=== PATIENT | male | born 1990 | race Caucasian/White ===

== ENCOUNTER 2019-10-10 08:18 | Emergency (ER) | payer SELFPAY ==
[2019-10-10 08:56] VITALS: BP 133/76; PULSE 93; RESP 22; TEMP 37.6; O2SAT 98
--- NOTE | 2019-10-10 09:00 | ED.URI ---
HPI - URI/Sore Throat General Chief Complaint: Upper Respiratory Infection Stated Complaint: cough/Body aches/headache Time Seen by Provider: 10/10/19 09:00 Source: patient and RN notes reviewed History of Present Illness HPI Narrative: Patient is a 29-year-old male that presents the urgent care with complaints of body aches, chest congestion, cough, headache, upper back pain. Patient states that it started last night while he was at work and he has not taken anything for his symptoms. Patient states he vomited one time and has been slightly nauseous with a sore throat. Denies any known exposure to strep or flu. No other acute complaints. Patient appears slightly fatigued but otherwise no acute distress noted. Patient read the plan of care. Related Data Allergies Allergy/AdvReac Type Severity Reaction Status Date / Time No Known Allergies Allergy Verified 10/10/19 09:15 Review of Systems Review of Systems: Narrative: CONSTITUTIONAL: Denies fever, chills, or sweats. EYES: Denies visual changes, redness, or discharge. ENT: Reports of sinus congestion, sore throat CARDIOVASCULAR: Denies chest pain, palpitations, or edema. RESPIRATORY: Reports of cough without dyspnea or wheezing GASTROINTESTINAL: Denies abdominal pain, nausea, vomiting, or diarrhea. GENITOURINARY: Denies dysuria or hematuria. SKIN: Denies rash or itching. MUSCULOSKELETAL: Denies back pain, joint pain; reports of body aches NEUROLOGIC: Reports of headache All other systems reviewed are negative, except as documented in HPI. PMFSH Comments At the time of my signature, I reviewed and agree with the nursing past medical, surgical, social, and family history. There is no relevant family history pertinent to the patient complaint. Exam Narrative: Exam Narrative: GENERAL: This is a well-nourished, well-developed patient, appears slightly fatigued HEAD: normocephalic, atraumatic. EYES: PERRL. Sclera clear/white. Vision is grossly intact. EARS: External ears normal, auditory canals clear and without drainage, TMs normal without perforation. Hearing grossly intact. NOSE: External nose normal with no obvious nasal discharge, bilateral erythemic nares with clear rhinorrhea. THROAT: Mucous membranes moist, moderate erythema noted posterior oropharynx with moderate postnasal drainage. NECK: Neck supple, non-tender without lymphadenopathy CARDIOVASCULAR: Regular rate and rhythm without murmurs, gallops, or rubs. RESPIRATORY: Clear to auscultation. Breath sounds equal bilaterally. No wheezes, rales, or rhonchi. SKIN: warm, intact with no suspicious lesions or rash, good texture and turgor. NEURO: awake, alert, and oriented to person, place and time. There were no obvious focal neurologic abnormalities. EXTREMITIES: No clubbing, cyanosis, or edema. Course Vital Signs Vital signs: Vital Signs Temperature 99.7 F H 10/10/19 08:56 Pulse Rate 93 10/10/19 08:56 Respiratory Rate 22 H 10/10/19 08:56 Blood Pressure 133/76 10/10/19 08:56 Pulse Oximetry 98 10/10/19 08:56 Temperature 99.7 F H 10/10/19 08:56 Pulse Rate 93 10/10/19 08:56 Respiratory Rate 22 H 10/10/19 08:56 Blood Pressure 133/76 10/10/19 08:56 Pulse Oximetry 98 10/10/19 08:56 Reviewed MDM - URI/Sore Throat MDM Narrative Medical decision making narrative: Reviewed lab results with the patient. Aware that flu swab was negative for influenza. Strep swab was positive. Advised the patient to complete antibiotic regimen as prescribed. Make sure to eat and drink with the medication. Increase fluids and rest. Use humidifier at night. Use Tylenol/ibuprofen as needed for fever and pain. Follow-up with PCP within 2 to 5 days or for worsening symptoms or failure to improve. Differential Diagnosis Differential diagnosis: Likely upper respiratory infection, otitis media, sinusitis, viral infection, bronchitis, influenza and pharyngitis Lab Data Attestation: I reviewed the patient's lab results
== END 2019-10-10 09:20 | disposition home or self-care (01) ==
PROVIDERS: Emergency Provider Nurse Practitioner Family
DX: J02.0 Streptococcal pharyngitis (principal)
CPT/HCPCS: 87804; 87880; 99213; G0463

== ENCOUNTER → 2020-05-09 09:29 | Emergency (ER) | payer OTHER, SELFPAY | END | disposition left against medical advice (07) | LOC: EXPBETH 09:45 | PROVIDERS: Emergency Provider Registered Nurse | DX: Z53.21 Procedure and treatment not carried out due to patient leaving prior to being seen by health care provider (principal) | CPT/HCPCS: 99199 ==

== ENCOUNTER 2020-09-20 16:45 | Emergency (ER) | payer OTHER, SELFPAY ==
--- NOTE | ~2020-09-20 | XR_ITS ---
XR hand RT min 3V 09/20/2020 17:12 INDICATION: Right hand pain after trauma. Unchanged injury. PROCEDURE: 3 views right hand COMPARISON: No prior studies for comparison. FINDINGS: Fracture, dislocation or subluxation is not identified. There is an old healed boxer's frac ture of the fifth metacarpal. The soft tissues appear within normal limits. No foreign bodies are id entified. IMPRESSION: 1: NO ACUTE BONE OR JOINT ABNORMALITY IDENTIFIED. Reviewed, dictated and finalized at location A. ODS TIME ANALYST
[2020-09-20 17:00] VITALS: BP 137/61; PULSE 66; RESP 18; TEMP 36.9; O2SAT 66
--- NOTE | 2020-09-20 17:03 | ED.UPPEXIN ---
HPI - Extremity Injury (Upper) General Chief Complaint: Extremity Injury, Upper Stated Complaint: Extremity Injury, Upper Time Seen by Provider: 09/20/20 17:03 Source: patient and RN notes reviewed History of Present Illness HPI narrative: Patient is a 30-year-old male who presents the urgent care with complaints of right hand pain. Patient states that this morning he punched a wooden door frame and yesterday he punched his phone. Patient states that the pain has been consistent since this morning he has not taken anything [id number] for the pain. Patient is right-hand dominant and states that he has fractured the right hand in the past. No other acute complaints. No acute distress noted. Patient aware of the plan of care. Some parts of this dictation were generated by voice recognition software and may contain typographical and/or grammatical inaccuracies. Related Data Home Medications Medication Instructions Recorded Confirmed No Home Medications 09/20/20 09/20/20 Allergies Allergy/AdvReac Type Severity Reaction Status Date / Time No Known Allergies Allergy Verified 09/20/20 16:55 Review of Systems Review of Systems: Narrative: CONSTITUTIONAL: Denies fever, chills, or sweats. EYES: Denies visual changes, redness, or discharge. ENT: Denies rhinorrhea, congestion, sore throat, or otalgia. CARDIOVASCULAR: Denies chest pain, palpitations, or edema. RESPIRATORY: Denies cough or dyspnea. GASTROINTESTINAL: Denies abdominal pain, nausea, vomiting, or diarrhea. GENITOURINARY: Denies dysuria or hematuria. SKIN: Denies rash or itching. MUSCULOSKELETAL: Reports of right hand pain NEUROLOGIC: Denies headache, numbness, or weakness. All other systems reviewed are negative, except as documented in HPI. PMFSH Comments At the time of my signature, I reviewed and agree with the nursing past medical, surgical, social, and family history. There is no relevant family history pertinent to the patient complaint. Exam Narrative: Exam Narrative: GENERAL: This is a well-nourished, well-developed patient, in no apparent distress. HEAD: normocephalic, atraumatic. EYES: PERRL. Sclera clear/white. Vision is grossly intact. EARS: External ears normal NOSE: External nose normal with no obvious nasal discharge, nares without redness, no rhinorrhea. THROAT: Mucous membranes moist NECK: Neck supple SKIN: warm, intact with no suspicious lesions or rash, good texture and turgor. NEURO: awake, alert, and oriented to person, place and time. There were no obvious focal neurologic abnormalities. EXTREMITIES: Mild ecchymosis and edema localized to the proximal aspect of the fifth metacarpal. Positive strong right radial pulse with capillary refill less than 2 seconds. No obvious deformity. Course Vital Signs Vital signs: Vital Signs Temperature 98.4 F 09/20/20 17:00 Pulse Rate 66 09/20/20 17:00 Respiratory Rate 18 09/20/20 17:00 Blood Pressure 137/61 09/20/20 17:00 Pulse Oximetry 66 L 09/20/20 17:00 Temperature 98.4 F 09/20/20 17:00 Pulse Rate 66 09/20/20 17:00 Respiratory Rate 18 09/20/20 17:00 Blood Pressure 137/61 09/20/20 17:00 Pulse Oximetry 66 L 09/20/20 17:00 Reviewed MDM - Extremity Injury (Upper) MDM Narrative Medical decision making narrative: Reviewed x-ray results with the patient. He is aware that x-ray was negative for fracture or deformity. Advised the patient to use ice/Tylenol/ibuprofen as needed for comfort and pain. Possibly avoid taking your anger out on punching the muñoz/your phone. Follow-up with your PCP within 2 to 5 days or for worsening symptoms or failure to improve. Differential Diagnosis Differential diagnosis: Likely sprain and strain of wrist, fracture of wrist, finger sprain, dislocation of finger, fracture of hand and dislocation of shoulder Imaging Data Radiologist's impression: [address] [address] XRay Rep
--- NOTE | 2020-09-20 17:18 | PC.NURSE ---
PT DECLINED ICE FOR COMFORT
== END 2020-09-20 17:25 | disposition home or self-care (01) ==
PROVIDERS: Emergency Provider Nurse Practitioner Family
DX: M79.641 Pain in right hand (principal)
CPT/HCPCS: 73130; 99213; G0463

== ENCOUNTER 2020-12-18 10:47 | Emergency (ER) | payer OTHER, SELFPAY ==
[2020-12-18 10:54] VITALS: BP 123/77; PULSE 61; RESP 20; TEMP 36.8; O2SAT 99
--- NOTE | 2020-12-18 11:32 | ED.NAVMDI ---
HPI - Nausea/Vomiting/Diarrhea General Chief complaint: Nausea/Vomiting/Diarrhea Stated complaint: diahrrea and nausea Time Seen by Provider: 12/18/20 11:32 Source: patient Mode of arrival: ambulatory Limitations: no limitations History of Present Illness HPI Narrative: PATIENT PRESENTS WITH NAUSEA AND DIARRHEA. NO ABDOMINAL PAIN NO FEVER. NORMAL APPETITE AND NORMAL ACTIVITY. WORK SENT HIM FOR COVID 19 TESTING. MD elicited complaint: nausea, vomiting and diarrhea Related Data Home Medications Medication Instructions Recorded Confirmed No Home Medications 09/20/20 09/20/20 Allergies Allergy/AdvReac Type Severity Reaction Status Date / Time No Known Allergies Allergy Verified 09/20/20 16:55 Review of Systems Review of Systems: Narrative: CONSTITUTIONAL: Denies fever, chills, or sweats. EYES: Denies visual changes, redness, or discharge. ENT: Denies rhinorrhea, congestion, sore throat, or otalgia. CARDIOVASCULAR: Denies chest pain, palpitations, or edema. RESPIRATORY: Denies cough or dyspnea. GASTROINTESTINAL: Denies abdominal pain, nausea, vomiting, or diarrhea. GENITOURINARY: Denies dysuria or hematuria. SKIN: Denies rash or itching. MUSCULOSKELETAL: Denies back pain, joint pain, or myalgia. NEUROLOGIC: Denies headache, numbness, or weakness. PSYCHIATRIC: Denies anxiety or depression. PMFSH Comments At time of signature, agree with nursing past medical, surgical, social and family history. There is no relevant family history pertinent to the presenting complaint Exam Narrative: Exam Narrative: GENERAL: Well-appearing, well-nourished, and in no acute distress. HEAD: Normocephalic, atraumatic. EYES: PERRLA and EOMI. ENT: Nares clear, no rhinorrhea or epistaxis. Mucous membranes moist. NECK: Supple. CHEST: Clear to auscultation. No respiratory distress. HEART: Regular rate and rhythm. No murmur heard. Normal peripheral pulses. ABDOMEN: Soft, nontender, nondistended, normal active bowel sounds. EXTREMITIES: Normal range of motion. No edema. SKIN: Warm, dry, no rash. NEURO: No focal deficits. Alert and oriented x3. [place] Coma Scale Eye Opening: Spontaneous 4 [place] Coma Scale Motor: Obeys Commands 6 [place] Coma Scale Verbal: Oriented 5 Vj Coma Scale Total 15 Course Vital Signs Vital signs: Vital Signs Temperature 36.8 C 12/18/20 10:54 Pulse Rate 61 12/18/20 10:54 Respiratory Rate 20 12/18/20 10:54 Blood Pressure 123/77 12/18/20 10:54 Pulse Oximetry 99 12/18/20 10:54 Temperature 36.8 C 12/18/20 10:54 Pulse Rate 61 12/18/20 10:54 Respiratory Rate 20 12/18/20 10:54 Blood Pressure 123/77 12/18/20 10:54 Pulse Oximetry 99 12/18/20 10:54 MDM - Nausea/Vomiting/Diarrhea Lab Data Attestation: I reviewed the patient's lab results. Labs: Lab Results 12/18/20 Range/Units 11:00 POC SARS CoV-2 Ag Negative (Negative) Discharge Plan Discharge Clinical Impression: Educated about 2019 novel coronavirus infection, Nausea & vomiting, Acute diarrhea Patient Disposition: Home, Self-Care Condition: Stable Instructions: Antibiotic Form, Acute Nausea and Vomiting (ED), Acute Diarrhea (ED), COVID-19 (Coronavirus Disease 2019) (ED) Additional Instructions: The following recommendations have been made by the CDC and local Health Departments, regarding COVID-19: ?Those individuals with mild cases of COVID-19 can generally be discontinued from isolation, 10 days AFTER the onset of symptoms AND the resolution of fever for 24hrs (without the use of fever-reducing medications) ?Those individuals who were asymptomatic, and tested positive, are discontinued from isolation 10 days AFTER their first positive COVID-19 test ?Those individuals with SEVERE to CRITICAL illness or immunocompromised diseases may require up to 20 days of home isolation or hospitalization ?Majority of mild to moderate cases can be treated at home, without hospitalization or presc
[2020-12-20 13:55] LABS: SARS-CoV-2 RNA PCR Negative
== END 2020-12-18 11:40 | disposition home or self-care (01) ==
PROVIDERS: Emergency Provider Nurse Practitioner Family
DX: R19.7 Diarrhea, unspecified (principal); R11.2 Nausea with vomiting, unspecified; Z20.822 Contact with and (suspected) exposure to COVID-19
CPT/HCPCS: 87426; 99213; C9803; G0463; U0003; U0005

== ENCOUNTER 2022-02-23 10:38 | Emergency (ER) | payer SELFPAY ==
--- NOTE | 2022-02-23 10:42 | ED.NAVMDI ---
HPI - Nausea/Vomiting/Diarrhea General Chief complaint: Nausea/Vomiting/Diarrhea Stated complaint: Vomiting/Chills/Nausea Time Seen by Provider: 02/23/22 10:42 Source: patient and RN notes reviewed History of Present Illness HPI Narrative: Patient is a 32-year-old male who presents the urgent care with complaints of chills, nausea and vomiting. Patient denies of any abdominal pain or diarrhea but states he has had an increase in stools. Patient states symptoms started Sunday after he ate a cheeseburger and fries at a local restaurant. States that he instantly vomited in the parking lot. Denies of taking anything [id number] for his symptoms. Patient states his main concern is needing a work note. No other acute complaints. No acute distress noted. Patient aware of the plan of care. Some parts of this dictation were generated by voice recognition software and may contain typographical and/or grammatical inaccuracies. Related Data Allergies Allergy/AdvReac Type Severity Reaction Status Date / Time No Known Allergies Allergy Verified 02/23/22 10:50 Review of Systems Review of Systems: CONSTITUTIONAL: Denies fever, chills, or sweats. EYES: Denies visual changes, redness, or discharge. ENT: Denies rhinorrhea, congestion, sore throat, or otalgia. CARDIOVASCULAR: Denies chest pain, palpitations, or edema. RESPIRATORY: Denies cough or dyspnea. GASTROINTESTINAL: Reports of nausea and vomiting without abdominal pain or diarrhea GENITOURINARY: Denies dysuria or hematuria. SKIN: Denies rash or itching. MUSCULOSKELETAL: Denies back pain, joint pain, or myalgia. NEUROLOGIC: Denies headache, numbness, or weakness. All other systems reviewed are negative, except as documented in HPI. PMFSH Comments At the time of my signature, I reviewed and agree with the nursing past medical, surgical, social, and family history. There is no relevant family history pertinent to the patient complaint. Exam Narrative: GENERAL: This is a well-nourished, well-developed patient, in no apparent distress. HEAD: normocephalic, atraumatic. EYES: PERRL. Sclera clear/white. Vision is grossly intact. EARS: External ears normal NOSE: External nose normal with no obvious nasal discharge, nares without redness, no rhinorrhea. THROAT: Mucous membranes moist NECK: Neck supple CARDIOVASCULAR: Regular rate and rhythm without murmurs, gallops, or rubs. RESPIRATORY: Clear to auscultation. Breath sounds equal bilaterally. No wheezes, rales, or rhonchi. GASTROINTESTINAL: Abdomen soft, non-tender, nondistended. Bowel sounds are hypoactive. No guarding. SKIN: warm, intact with no suspicious lesions or rash, good texture and turgor. NEURO: awake, alert, and oriented to person, place and time. There were no obvious focal neurologic abnormalities. EXTREMITIES: No clubbing, cyanosis, or edema. Course Course Level of Care: Express Care Visit Vital Signs Vital signs: Vital Signs Temperature 98.4 F 02/23/22 10:44 Pulse Rate 73 02/23/22 10:44 Respiratory Rate 16 02/23/22 10:44 Blood Pressure 117/77 02/23/22 10:44 Pulse Oximetry 97 02/23/22 10:44 Oxygen Delivery Room Air 02/23/22 10:44 Temperature 98.4 F 02/23/22 10:44 Pulse Rate 73 02/23/22 10:44 Respiratory Rate 16 02/23/22 10:44 Blood Pressure 117/77 02/23/22 10:44 Pulse Oximetry 97 02/23/22 10:44 Oxygen Delivery Room Air 02/23/22 10:44 Reviewed MDM - Nausea/Vomiting/Diarrhea MDM Narrative Medical decision making narrative: Advised the patient to use the Zofran as needed for nausea. Increase water intake and eat a bland diet for the next 24 to 48 hours. If you develop any increase in symptoms associated with severe abdominal pain, nausea, vomiting, fever?go to the emergency room. Follow-up with your PCP within 2 to 5 days or for worsening symptoms or failure to improve. Differential Diagnosis Differential diagnosis: Likely traveler's diarrhea, food poisoning, gastr
[2022-02-23 10:44] VITALS: BP 117/77; PULSE 73; RESP 16; TEMP 36.9; O2SAT 97
== END 2022-02-23 11:10 | disposition home or self-care (01) ==
PROVIDERS: Emergency Provider Nurse Practitioner Family
DX: R11.2 Nausea with vomiting, unspecified (principal)
CPT/HCPCS: 99213; G0463

== ENCOUNTER 2022-05-04 10:04 | Emergency (ER) | payer OTHER, SELFPAY ==
--- NOTE | 2022-05-04 10:07 | ED.DENTAL ---
HPI - Dental/Oral General Chief complaint: Dental/Oral Stated complaint: Toothache Time Seen by Provider: 05/04/22 10:07 Source: patient and RN notes reviewed History of Present Illness HPI Narrative: Patient is a 32-year-old male who presents the urgent care with complaints of right lower dental pain and swelling. Patient states that he saw the dental school last week and he does need to have the tooth removed but they were unable to get him in until June. Patient was placed on 800 mg ibuprofen which he has been taking for the pain. Patient states that the swelling and increased pain started approximately 3 days ago. Denies of any fever, nausea or vomiting. No other acute complaints. No acute distress noted. Patient aware of the plan of care. Some parts of this dictation were generated by voice recognition software and may contain typographical and/or grammatical inaccuracies. Related Data Home Medications Medication Instructions Recorded Confirmed paroxetine HCl 20 mg tablet (Paxil) 20 mg PO QAM 05/04/22 05/04/22 Allergies Allergy/AdvReac Type Severity Reaction Status Date / Time No Known Allergies Allergy Verified 05/04/22 10:18 Review of Systems Review of Systems: CONSTITUTIONAL: Denies fever, chills, or sweats. EYES: Denies visual changes, redness, or discharge. ENT: Denies rhinorrhea, congestion, sore throat, or otalgia. Reports of right lower dental pain and swelling CARDIOVASCULAR: Denies chest pain, palpitations, or edema. RESPIRATORY: Denies cough or dyspnea. GASTROINTESTINAL: Denies abdominal pain, nausea, vomiting, or diarrhea. GENITOURINARY: Denies dysuria or hematuria. SKIN: Denies rash or itching. MUSCULOSKELETAL: Denies back pain, joint pain, or myalgia. NEUROLOGIC: Denies headache, numbness, or weakness. All other systems reviewed are negative, except as documented in HPI. PMFSH Comments At the time of my signature, I reviewed and agree with the nursing past medical, surgical, social, and family history. There is no relevant family history pertinent to the patient complaint. Exam Narrative: GENERAL: This is a well-nourished, well-developed patient, in no apparent distress. HEAD: normocephalic, atraumatic. EYES: PERRL. Sclera clear/white. Vision is grossly intact. EARS: External ears normal NOSE: External nose normal with no obvious nasal discharge, nares without redness, no rhinorrhea. THROAT: Mucous membranes moist, posterior pharynx clear. DENTAL: Carious tooth #32 with inverted position and surrounding erythema and edema NECK: Neck supple, mild tender right submandibular lymphadenopathy SKIN: warm, intact with no suspicious lesions or rash, good texture and turgor. NEURO: awake, alert, and oriented to person, place and time. There were no obvious focal neurologic abnormalities. EXTREMITIES: No clubbing, cyanosis, or edema. Course Course Level of Care: Express Care Visit Vital Signs Vital signs: Vital Signs Temperature 98.0 F 05/04/22 10:12 Pulse Rate 68 05/04/22 10:12 Respiratory Rate 14 05/04/22 10:12 Blood Pressure 124/91 H 05/04/22 10:12 Pulse Oximetry 99 05/04/22 10:12 Oxygen Delivery Room Air 05/04/22 10:12 Temperature 98.0 F 05/04/22 10:19 Pulse Rate 68 05/04/22 10:19 Respiratory Rate 14 05/04/22 10:19 Blood Pressure 124/91 H 05/04/22 10:19 Pulse Oximetry 99 05/04/22 10:19 Oxygen Delivery Room Air 05/04/22 10:19 Reviewed-patient is informed that they may have pre-hypertension or hypertension based on a blood pressure reading in the department. I recommend the patient call the primary care provider listed on their discharge instructions or a physician of their choice this week to arrange follow-up for further evaluation of possible pre-hypertension or hypertension. MDM - Dental/Oral MDM Narrative Medical decision making narrative: Advised the patient to continue taking the ibuprofen as needed for pain. Use a warm compress to th
[2022-05-04 10:12] VITALS: BP 124/91; PULSE 68; RESP 14; TEMP 36.7; O2SAT 99
[2022-05-04 10:19] VITALS: BP 124/91; PULSE 68; RESP 14; TEMP 36.7; O2SAT 99
== END 2022-05-04 10:24 | disposition home or self-care (01) ==
PROVIDERS: Emergency Provider Nurse Practitioner Family
DX: K04.7 Periapical abscess without sinus (principal)
CPT/HCPCS: 99213; G0463

== ENCOUNTER 2023-08-20 09:55 | Emergency (ER) | payer OTHER, SELFPAY ==
[2023-08-20 10:04] VITALS: BP 127/93; PULSE 110; RESP 20; TEMP 38.4; O2SAT 97
--- NOTE | 2023-08-20 10:36 | ED.URI ---
HPI - URI/Sore Throat General Chief Complaint: Upper Respiratory Infection Stated Complaint: headache/coug/chills/aches Time Seen by Provider: 08/20/23 10:37 Source: patient, RN notes reviewed and old records reviewed Mode of arrival: ambulatory Limitations: no limitations History of Present Illness HPI Narrative: 33-year-old male accompanied by child presents to Express Care with complaints to 3 week duration of cough with body aches chills fever, sore throat and sinus congestion and drainage with headache since Sunday with today being day 4 of his symptoms. Patient has used Vicks vapor rub only for his symptoms states he ran out of Tylenol. Patient reports that he has had history of strep throat in past. MD elicited complaint: cough and other (headache) Pertinent past history: other (strep) Onset (ago): week(s) (3 weeks cough 4 days temperature headache ) Able to tolerate fluids by mouth: Yes Treatments prior to arrival: other (Vicks vapor rub) Related Data Allergies Allergy/AdvReac Type Severity Reaction Status Date / Time No Known Allergies Allergy Verified 08/20/23 10:34 Review of Systems Review of Systems: CONSTITUTIONAL: Reports malaise, chills, sweats, or fever. EYES: Denies visual changes, redness, or discharge. ENT: Reports rhinorrhea, congestion, sinus pain, no otalgia and positive sore throat. CARDIOVASCULAR: Denies chest pain, palpitations, or edema. RESPIRATORY: Reports cough.? Denies dyspnea. GASTROINTESTINAL: Denies abdominal pain, nausea, vomiting, diarrhea SKIN: Denies rash or itching. MUSCULOSKELETAL:Reports myalgia. NEUROLOGIC: Reports headache. All systems reviewed & are unremarkable except as noted in HPI and below PMFSH Past Medical History Medical History Strep throat Surgical History Surgical History History of placement of ear tubes as child Social History Social History Smoking status: Current every day smoker Tobacco type: e-cigarettes/vaping Gender identity (if verbalized by the patient): Male Comments At time of signature, agree with nursing past medical, surgical, social and family history. There is no relevant family history pertinent to the presenting complaint Exam Narrative: GENERAL: Well-appearing, well-nourished, and in no acute distress. HEAD: Normocephalic EYES: PERRLA, conjunctivae clear ENT: Nares clear, turbinates edematous and erythematous, clear to yellowish tinged discharge. Mucous membranes moist. TM pearly cifuentes with dull light reflex bilaterally; no tragal tenderness. Oropharynx erythematous without lesions. Tonsils red enlarged and without exudate, no drooling, no hoarseness, no trismus, uvula midline.post nasal discharge noted NECK: Supple. lymphadenopathy CHEST: Clear to auscultation, breath sounds equal. No wheezing, rhonchi, rales, or stridor. No respiratory distress, speaks in full sentences.cough noted,SAO2 97% on room air HEART: Regular rate and rhythm. No murmur heard. SKIN: Warm, dry, no rash. NEURO: Alert and oriented x3. PSYCH: Normal mood and affect Course Course Emergency Course: Patient is aware of diagnosis, understands and agrees to treatment plan.? Anticipatory guidance given.? Patient agrees to follow-up as directed and is aware of reasons to seek care at the emergency department. Portions of this record may have been created with voice recognition software Level of Care: Express Care Visit Vital Signs Vital signs: Vital Signs Temperature 38.4 C H 08/20/23 10:04 Pulse Rate 110 H 08/20/23 10:04 Respiratory Rate 20 08/20/23 10:04 Blood Pressure 127/93 H 08/20/23 10:04 Pulse Oximetry 97 08/20/23 10:04 Oxygen Delivery Room Air 08/20/23 10:04 Temperature 38.4 C H 08/20/23 10:04 Pulse Rate 110 H 08/20/23 10
== END 2023-08-20 11:00 | disposition home or self-care (01) ==
PROVIDERS: Emergency Provider Registered Nurse; PCP Family Medicine
DX: J06.9 Acute upper respiratory infection, unspecified (principal); F17.290 Nicotine dependence, other tobacco product, uncomplicated; Z20.822 Contact with and (suspected) exposure to COVID-19
CPT/HCPCS: 87081; 87426; 87804; 87880; 99213; C9803; G0463

== ENCOUNTER 2023-10-23 08:55 | Emergency (ER) | payer OTHER, SELFPAY ==
[2023-10-23 09:00] VITALS: BP 111/75; PULSE 92; RESP 20; TEMP 37.6; O2SAT 98
--- NOTE | 2023-10-23 09:17 | ED.URI ---
HPI - URI/Sore Throat General Stated Complaint: Cough/Chest Congestion/Sore Throat/Fever History of Present Illness HPI Narrative: 33 y/o male presented for c/o Not feeling well. He endorses mild cough productive of green sputum, mild nasal congestion, sore throat, and generalized malaise. Not taking anything for symptoms. He endorses his mother is in the ICU with influenza pneumonia. Related Data Home Medications Medication Instructions Recorded Confirmed No Home Medications 10/23/23 10/23/23 Allergies Allergy/AdvReac Type Severity Reaction Status Date / Time No Known Allergies Allergy Verified 10/23/23 09:26 Review of Systems Review of Systems: CONSTITUTIONAL: reports body aches, fever, chills, sweats. EYES: Denies visual changes, redness, or discharge. ENT: reports sore throat Denies rhinorrhea, congestion, or otalgia. CARDIOVASCULAR: Denies chest pain, palpitations, or edema. RESPIRATORY: reports cough Denies dyspnea. GASTROINTESTINAL: Denies abdominal pain, nausea, vomiting, or diarrhea. SKIN: Denies rash, itching, or wounds. MUSCULOSKELETAL: Denies back pain, joint pain NEUROLOGIC: Denies headache PMFSH Past Medical History Medical History Strep throat Surgical History Surgical History History of placement of ear tubes as child Social History Social History Smoking status: Current every day smoker Tobacco type: e-cigarettes/vaping Gender identity (if verbalized by the patient): Male Exam Narrative: GENERAL: Ill-appearing, nontoxic no acute distress. EYES: conjunctivae clear ENT: Mucous membranes moist. TMs pearly cifuentes with normal light reflex bilaterally; no tragal tenderness. Oropharynx mildly erythematous without lesions. No drooling, no hoarseness, no trismus, uvula midline. No tripod positioning, hot potato voice, or soft palate swelling. NECK: Supple. No lymphadenopathy CHEST: Clear to auscultation, breath sounds equal. No respiratory distress, speaks in full sentences. HEART: Regular rate and rhythm. No murmur heard. SKIN: Warm, dry, no rash. NEURO: Alert and oriented x3. Course Course Emergency Course: Patient is aware of diagnosis, understands and agrees to treatment plan. Anticipatory guidance given. Patient agrees to follow-up as directed and is aware of reasons to seek care at the emergency department. Portions of this record may have been created with voice recognition software Level of Care: Express Care Visit Vital Signs Vital signs: Vital Signs Temperature 99.6 F 10/23/23 09:00 Pulse Rate 92 10/23/23 09:00 Respiratory Rate 20 10/23/23 09:00 Blood Pressure 111/75 10/23/23 09:00 Pulse Oximetry 98 10/23/23 09:00 Oxygen Delivery Room Air 10/23/23 09:00 Temperature 99.6 F 10/23/23 09:00 Pulse Rate 92 10/23/23 09:00 Respiratory Rate 20 10/23/23 09:00 Blood Pressure 111/75 10/23/23 09:00 Pulse Oximetry 98 10/23/23 09:00 Oxygen Delivery Room Air 10/23/23 09:00 MDM - URI/Sore Throat MDM Narrative Medical decision making narrative: Negative flu, COVID, strep results reviewed with patient. Discussed physical exam findings. Advised supportive measures and signs/symptoms to go to the ER. Pt is appropriate for outpt treatment and f/u. Differential Diagnosis Differential diagnosis: Likely upper respiratory infection, sinusitis, viral infection, bronchitis, influenza and pharyngitis Discharge Plan Discharge Clinical Impression: Viral infection Patient Disposition: Home, Self-Care Condition: Stable Instructions: Antibiotic Form, Viral Syndrome (ED) Additional Instructions: flu and COVID negative. Rapid strep swab was negative today You will be notified in a few days if the culture comes back positive for strep, and appr
== END 2023-10-23 09:30 | disposition home or self-care (01) ==
PROVIDERS: Emergency Provider Nurse Practitioner Family
DX: B34.9 Viral infection, unspecified (principal); Z20.822 Contact with and (suspected) exposure to COVID-19; F17.290 Nicotine dependence, other tobacco product, uncomplicated
CPT/HCPCS: 87081; 87426; 87804; 87880; 99213; G0463

== ENCOUNTER 2024-01-29 08:25 | Emergency (ER) | payer OTHER, SELFPAY ==
[2024-01-29 08:30] VITALS: BP 108/67; PULSE 90; RESP 20; TEMP 37.3; O2SAT 99
--- NOTE | 2024-01-29 08:39 | ED.URI ---
HPI - URI/Sore Throat General Chief Complaint: Upper Respiratory Infection Stated Complaint: throat/headache/fever Time Seen by Provider: 01/29/24 08:39 Source: patient, RN notes reviewed and old records reviewed Mode of arrival: ambulatory Limitations: no limitations History of Present Illness HPI Narrative: 34-year-old male to Express Care for complaint of sore throat and temp 103? starting approximately 12 hours prior to arrival. Patient states that he has not attempted to treat symptoms at home with any [id number] medication. Patient denies ear pain, cough, headache, GI complaints, allergies, headache. Respirations even and nonlabored. Patient speaking in full sentences without difficulty. Patient able to tolerate fluids by mouth. Patient in no acute distress. Related Data Allergies Allergy/AdvReac Type Severity Reaction Status Date / Time No Known Allergies Allergy Verified 10/23/23 09:26 Review of Systems Review of Systems: All systems reviewed & are unremarkable except as noted in HPI and below Constitutional: Constitutional: Reports as per HPI and Reports fever(s) Eyes: Eyes: Reports no additional eye complaints ENT: Reports as per HPI and Reports sore throat Cardiovascular: Cardiovascular: Reports no additional cardiovascular complaints, Denies chest pain and Denies dyspnea Respiratory: Respiratory: Reports no additional respiratory complaints, Denies cough and Denies dyspnea Musculoskeletal: Musculoskeletal: Reports no additional musculoskeletal complaints Neurologic: Reports system reviewed and no additional complaints, except as documented Psychiatric: Psychiatric: Reports no additional psychiatric complaints PMFSH Past Medical History Medical History Strep throat Surgical History Surgical History History of placement of ear tubes as child Social History Social History Smoking status: Current every day smoker Tobacco type: e-cigarettes/vaping Gender identity (if verbalized by the patient): Male Comments At the time of my signature, I reviewed and agree with the nursing past medical, surgical, social, and family history. There is no relevant family history pertinent to the patient complaint. Exam Const: General: cooperative, no acute distress, alert, tired appearing, uncomfortable and well nourished Nutritional Appearance: well nourished Orientation/consciousness: patient oriented x3 Limitations: no limitations HENMT: Head: normal to inspection Ears: external ears normal Face/Nose/Sinus: Normal external nose present, Normal nares present, normal facial exam, No erythema and No edema Face and sinus: normal facial exam, no erythema and no edema Mouth: Yes Normal oral and palatal mucosa present Throat: posterior oropharynx abnormal erythema and exudates and postnasal drainage Eyes: General: appearance normal, both eyes and all related structures Neck: Neck: normal visual inspection, full ROM and no meningeal signs Lymphatic: no lymphadenopathy noted and no lymphedema noted Chest: Chest palpation & inspection: normal inspection of the chest Resp: Effort & Inspection: normal respiratory effort and able to speak in complete sentences Auscultation: clear to auscultation bilaterally Cardio: Jugular venous distension: no JVD Rate: regular rate Rhythm: regular rhythm Back/Spine/Pelvis: Cervical Spine: cervical ROM normal Skin: General skin exam: normal color, no rashes or lesions noted and turgor normal Neuro: General: patient oriented x3, gait normal, moves all extremities and no meningeal signs Speech: normal speech Gait exam (Neuro): Normal gait present Extrem: General: normal to inspection, full ROM and capillary refill normal Psych: Appearance: grossly normal and well kempt Course C
== END 2024-01-29 09:18 | disposition home or self-care (01) ==
PROVIDERS: Emergency Provider Nurse Practitioner Family
DX: J02.0 Streptococcal pharyngitis (principal); F17.290 Nicotine dependence, other tobacco product, uncomplicated
CPT/HCPCS: 87880; 99213; G0463

== ENCOUNTER 2024-04-18 18:15 | Emergency (ER) | payer OTHER, SELFPAY ==
[2024-04-18 18:34] VITALS: BP 122/72; PULSE 74; RESP 18; TEMP 37; O2SAT 99
--- NOTE | 2024-04-18 19:03 | ED.URI ---
HPI - URI/Sore Throat General Chief Complaint: Upper Respiratory Infection Stated Complaint: Positive covid/worsening Time Seen by Provider: 04/18/24 18:50 Source: patient, family, RN notes reviewed and old records reviewed Mode of arrival: ambulatory Limitations: no limitations History of Present Illness HPI Narrative: 34 year old male who presents to [facility] care with complaints of testing positive for COVID on Monday 04/16 with symptoms worsening. Patient reports that he has headache with nasal congestion, diarrhea and body aches and dizziness. Patient reports that he has not had a headache today. Patient has not taken any OTC medications for his symptoms since this morning. Patient reports that he has not worked since Sunday due to illness. MD elicited complaint: nasal congestion and other (diarrhea, headache) Onset (ago): day(s) (day 3 of symptoms) Consistency: constant Able to tolerate fluids by mouth: Yes Related Data Home Medications Medication Instructions Recorded Confirmed No Home Medications 04/18/24 04/18/24 Allergies Allergy/AdvReac Type Severity Reaction Status Date / Time No Known Allergies Allergy Verified 04/18/24 19:00 Review of Systems Review of Systems: CONSTITUTIONAL: Reports malaise, chills, sweats, or fever. EYES: Denies visual changes, redness, or discharge. ENT: Reports rhinorrhea, congestion, sinus pain, no otalgia and no sore throat. CARDIOVASCULAR: Denies chest pain, palpitations, or edema. RESPIRATORY: Reports no cough.? Denies dyspnea. GASTROINTESTINAL: Denies abdominal pain, nausea, vomiting,reports some diarrhea SKIN: Denies rash or itching. MUSCULOSKELETAL: Reports myalgia. NEUROLOGIC: Reports headache. All systems reviewed & are unremarkable except as noted in HPI and below PMFSH Past Medical History Medical History Strep throat Surgical History Surgical History History of placement of ear tubes as child Social History Social History Smoking status: Current every day smoker Tobacco type: e-cigarettes/vaping Gender identity (if verbalized by the patient): Male Comments At time of signature, agree with nursing past medical, surgical, social and family history. There is no relevant family history pertinent to the presenting complaint Exam Narrative: GENERAL: Well-appearing, well-nourished, and in no acute distress. HEAD: Normocephalic EYES: PERRLA, conjunctivae clear ENT: Nares clear, turbinates edematous and erythematous, clear discharge. Mucous membranes moist. TM pearly cifuentes with dull light reflex bilaterally; no tragal tenderness. Oropharynx erythematous without lesions. Tonsils not enlarged and without exudate, no drooling, no hoarseness, no trismus, uvula midline. NECK: Supple. No lymphadenopathy CHEST: Clear to auscultation, breath sounds equal. No wheezing, rhonchi, rales, or stridor. No respiratory distress, speaks in full sentences. HEART: Regular rate and rhythm. No murmur heard. SKIN: Warm, dry, no rash. NEURO: Alert and oriented x3. PSYCH: Normal mood and affect Course Course Emergency Course: Patient is aware of diagnosis, understands and agrees to treatment plan.? Anticipatory guidance given.? Patient agrees to follow-up as directed and is aware of reasons to seek care at the emergency department. Portions of this record may have been created with voice recognition software Level of Care: Express Care Visit Vital Signs Vital signs: Vital Signs Temperature 37.0 C 04/18/24 18:34 Pulse Rate 74 04/18/24 18:34 Respiratory Rate 18 04/18/24 18:34 Blood Pressure 122/72 04/18/24 18:34 Pulse Oximetry 99 04/18/24 18:34 Oxygen Delivery Room Air 04/18/24 18:34 Temperature 37.0 C 04/18/24 18:34 Pulse
== END 2024-04-18 19:15 | disposition home or self-care (01) ==
PROVIDERS: Emergency Provider Registered Nurse
DX: U07.1 COVID-19 (principal); F17.290 Nicotine dependence, other tobacco product, uncomplicated
CPT/HCPCS: 99211; G0463

== ENCOUNTER 2024-07-21 08:29 | Emergency (ER) | payer OTHER, SELFPAY ==
--- NOTE | 2024-07-21 09:16 | ED_ITS ---
HPI - URI/Sore Throat General Chief Complaint: Upper Respiratory Infection Stated Complaint: Headache/Cough/Chest Congestioin/Fever Source: patient Mode of arrival: ambulatory Limitations: no limitations History of Present Illness HPI Narrative: 34 y/o male presented for c/o painful cough, onset yesterday. Endorses headache, fatigue, fever of 102.6 yesterday with chills. States he hears crackling at the end of breaths. Related Data Allergies Allergy/AdvReac Type Severity Reaction Status Date / Time No Known Allergies Allergy Verified 04/18/24 19:00 Review of Systems Review of Systems: CONSTITUTIONAL:reports body aches, fever, chills, sweats. EYES: Denies visual changes, redness, or discharge. ENT: Denies rhinorrhea, congestion, or otalgia. reports sore throat CARDIOVASCULAR: Denies chest pain, palpitations, or edema. RESPIRATORY: Reports cough, sob, denies wheezing. GASTROINTESTINAL: Denies abdominal pain, nausea, vomiting, or diarrhea. MUSCULOSKELETAL: Denies back pain, joint pain NEUROLOGIC: Denies headache, numbness, tingling, or weakness. All systems reviewed & are unremarkable except as noted in HPI and below PMFSH Past Medical History Medical History Strep throat Surgical History Surgical History History of placement of ear tubes as child Social History Social History Smoking status: Current every day smoker Tobacco type: e-cigarettes/vaping Gender identity (if verbalized by the patient): Male Comments At time of signature, I have reviewed and agree with nursing past medical, surg ical, social and family history unless otherwise noted. Please see nursing chart for further information. There is no relevant family history pertinent to the presenting complaint Exam Narrative: GENERAL: mildly ill-appearing, in no acute distress. EYES: EOMI. No redness or drainage. Conjunctivae normal. ENT: Mucous membranes pink and moist. No rhinorrhea. TMs normal bilaterally. Throat normal. Uvula midline. NECK: Normal AROM. Supple. CHEST: No respiratory distress. Lungs diminished to bases HEART: Regular rate and rhythm. No murmur appreciated. SKIN: Warm, dry, no rash. Capillary refill normal. Normal skin turgor. NEURO: Alert and oriented x3. Gait steady. PSYCH: Normal affect. Course Course Emergency Course: Patient is aware of diagnosis, understands and agrees to treatment plan. Anticipatory guidance given. Patient agrees to follow-up as directed and is aware of reasons to seek care at the emergency department. Portions of this record may have been created with voice recognition software Level of Care: Express Care Visit Vital Signs Vital signs: Vital Signs Temperature 98.9 F 07/21/24 09:26 Pulse Rate 89 07/21/24 09:26 Respiratory Rate 18 07/21/24 09:26 Blood Pressure 114/74 07/21/24 09:26 Pulse Oximetry 94 07/21/24 09:26 Oxygen Delivery Room Air 07/21/24 09:26 Temperature 98.9 F 07/21/24 09:26 Pulse Rate 89 07/21/24 09:26 Respiratory Rate 18 07/21/24 09:26 Blood Pressure 114/74 07/21/24 09:26 Pulse Oximetry 94 07/21/24 09:26 Oxygen Delivery Room Air 07/21/24 09:26 MDM - URI/Sore Throat MDM Narrative Medical decision making narrative: Declined duoneb. Imaging unavailable at this facility at this time. Discussed physical exam findings, negative flu and COVID. Agree to treat for pna at this time. Advised supportive measures and signs/symptoms to go to the ER. Pt is appropriate for outpt treatment and f/u. Differential Diagnosis Differential diagnosis: Likely upper respiratory infection, sinusitis, viral infection, bronchitis, influenza, pharyngitis and other (pneumonia) Discharge Plan Discharge Clinical Impression: Acute lower respiratory infection Patient Disposition: Home, Self-Care Condition: Stable Instructions: Antibiotic Form, Pneumonia (ED) Additional Instructions: Flu negative. Your rapid covid test was negative today. It may be too early to detect the virus, therefore we recommend retesting at home in 1-2 days Continue to follow general precautions: frequent handwashing, wear a mask, isolate/social distance, and avoid crowds if you have a fever. You must be fever free for 24 hours without the use of fever reducing medication (Tylenol/ibuprofen) before returning to work/school/crowds. Pneumonia is a lung infection that can cause a fever, cough, and trouble breathing. How it spreads: When someone with bacterial pneumonia coughs, sneezes, or talks, they release respiratory droplets into the air that can be inhaled by others.?You can also get pneumonia by touching a contaminated surface or object and then touching your mouth or nose. You're generally contagious for around 48 hours after starting antibiotics and your fever goes away.? To prevent the spread of pneumonia, you can:? ? Get vaccinated? ? Wash your hands often with soap and water for 20 seconds? ? Cover your mouth with a tissue when you cough or sneeze? ? Avoid people who are already sick with pneumonia? ? Stay home when you have pneumonia Take antibiotics as directed until complete. use albuterol inhaler every 4-6 hours for the next 2 days, then as needed for shortness of breath/wheezing eat small frequent meals. Get lots of rest and drink fluids. Alternate Tylenol and ibuprofen for pain/fever [id number] cough medication can cause drowsiness, take according to package directions If you have nasal congestion, you can take Zyrtec, Claritin along with Flonase spray Avoid smoking/vaping Call your Primary Care Doctor and make a follow-up appointment in 3 days. Go to the ER for worsening symptoms or concerns Prescriptions: New azithromycin [Zithromax Z-Fernando] 250 mg tablet See Rx Instructions .ROUTE .COMPLEX Qty: 6 0RF Rx Instructions: For 250 mg dose pack: take 500 mg today (day 1), then 250 mg for 4 days (days 2-5) methylprednisolone [Medrol (Fernando)] 4 mg tablets,dose pack See Rx Instructions .ROUTE .COMPLEX Qty: 21 0RF Rx Instructions: orally per package directions albuterol sulfate 90 mcg/actuation HFA aerosol inhaler 2 inh inhalation QID PRN (Reason: shortness of breath or wheezing) Qty: 8.5 0RF Follow-up/Referrals: PHYSICIAN NOT ON STAFF,NONSTAFF [Primary Care Provider] - Stand Alone Forms: Work/School Release IP Time of Disposition: 09:50
[2024-07-21 09:26] VITALS: BP 114/74; PULSE 89; RESP 18; TEMP 37.2; O2SAT 94
[2024-07-21 17:03] LABS: EDCOVIDSCREEN Negative (Negative)
[2024-07-21 17:03] LABS: EDINFLUASCREEN Negative (Negative); EDINFLUBSCREEN Negative (Negative)
== END 2024-07-21 09:54 | disposition home or self-care (01) ==
PROVIDERS: Emergency Provider Nurse Practitioner Family
DX: J22 Unspecified acute lower respiratory infection (principal); Z20.822 Contact with and (suspected) exposure to COVID-19
CPT/HCPCS: 87426; 87804; 99213; G0463

== ENCOUNTER 2024-09-30 08:25 | Emergency (ER) | payer OTHER, SELFPAY ==
[2024-09-30 08:29] VITALS: BP 124/70; PULSE 69; RESP 16; TEMP 36.6; O2SAT 98
--- NOTE | 2024-09-30 08:33 | ED.URI ---
HPI - URI/Sore Throat General Chief Complaint: Upper Respiratory Infection Stated Complaint: Cough/Fatigue Time Seen by Provider: 09/30/24 08:51 Source: patient and RN notes reviewed Mode of arrival: ambulatory Limitations: no limitations History of Present Illness HPI Narrative: 34-year-old male presents with concern for cough for 2 days. Reports body aches and feeling feverish. He reports cough is productive. Reports exposure to influenza a MD elicited complaint: cough Related Data Allergies Allergy/AdvReac Type Severity Reaction Status Date / Time No Known Allergies Allergy Verified 04/18/24 19:00 Review of Systems Review of Systems: CONSTITUTIONAL: Denies malaise, chills, sweats. Reports tactile fever. EYES: Denies visual changes, redness, or discharge. ENT: Denies rhinorrhea, congestion, sinus pain, otalgia and sore throat. CARDIOVASCULAR: Denies chest pain, palpitations, or edema. RESPIRATORY: Reports productive cough. Denies dyspnea. GASTROINTESTINAL: Denies abdominal pain, nausea, vomiting, diarrhea SKIN: Denies rash or itching. MUSCULOSKELETAL: Reports myalgia. NEUROLOGIC: Denies headache. All systems reviewed & are unremarkable except as noted in HPI and below PMFSH Past Medical History Medical History Strep throat Surgical History Surgical History History of placement of ear tubes as child Social History Social History Smoking status: Current every day smoker Tobacco type: e-cigarettes/vaping Gender identity (if verbalized by the patient): Male Comments At time of signature, agree with nursing past medical, surgical, social and family history. There is no relevant family history pertinent to the presenting complaint Exam Narrative: GENERAL: Well-appearing, well-nourished, and in no acute distress. HEAD: Normocephalic EYES: PERRLA, conjunctivae clear ENT: Nares clear. Mucous membranes moist. TM pearly cifuentes with dull light reflex bilaterally; no tragal tenderness. Oropharynx not erythematous without lesions. Tonsils not enlarged and without exudate, no drooling, no hoarseness, no trismus, uvula midline. NECK: Supple. No lymphadenopathy CHEST: Clear to auscultation, breath sounds equal. No wheezing, rhonchi, rales, or stridor. No respiratory distress, speaks in full sentences. HEART: Regular rate and rhythm. No murmur heard. SKIN: Warm, dry, no rash. NEURO: Alert and oriented x3. PSYCH: Normal mood and affect Course Course Emergency Course: Patient is aware of diagnosis, understands and agrees to treatment plan. Anticipatory guidance given. Patient agrees to follow-up as directed and is aware of reasons to seek care at the emergency department. Portions of this record may have been created with voice recognition software Level of Care: Express Care Visit Vital Signs Vital signs: Reviewed. MDM - URI/Sore Throat MDM Narrative Medical decision making narrative: Differential diagnosis considered: Adame virus, strep pharyngitis, allergic rhinitis, upper respiratory tract infection, sinusitis, rhinosinusitis, nasopharyngitis. viral pharyngitis, otitis media, otitis externa, pneumonia, bronchitis, viral cough syndrome, viral syndrome, and influenza. Exam findings show no acute concerns or changes; patient is non-toxic appearing and is in no distress. Patient is appropriate for outpatient treatment and follow-up. Lab Data Attestation: I reviewed the patient's lab results. Critical Care Time Critical Care Time Critical Care Time: No Discharge Plan Discharge Clinical Impression: Upper respiratory infection Patient Disposition: Home, Self-Care Condition: Stable Instructions: Upper Respiratory Infection (ED) Additional Instructions: Your rapid COVID and flu tests are negative -Take strict precautions to prevent the spread of your virus. Be diligent about covering your cough (even when you are alone) and washing your hands frequently. -You may contagious until you have been symptom and/or fever free for 24 hours without fever reducing medicine -Alternate Ibuprofen and Tylenol for pain and fever relief (per package directions) -Drink plenty of fluid - drink fluid with electrolytes such as Gatorade or other oral re-hydration solution. Avoid caffeine, which can make dehydration worse. -Get plenty of rest to help your body heal. -Use a cool mist humidifier for chest and nasal congestion. -Eat RAW honey or use cough drops to ease throat discomfort -Do not smoke or expose children to secondhand smoke -Wash your hands frequently. -Please follow-up with your primary care doctor in the next 1-2 days if your symptoms do not improve. -If you have any worsening of symptoms or any other concerns please go to the ED immediately. -Please take medications as prescribed and continue taking your home medications as usual. Patient Language: Hungarian Prescriptions: New dextromethorphan-guaifenesin [Mucinex DM] 60-1,200 mg tablet extended release 12 hr 1 tablet PO Q12H Qty: 12 0RF No Action azithromycin [Zithromax Z-Fernando] 250 mg tablet See Rx Instructions .ROUTE .COMPLEX Qty: 6 0RF Rx Instructions: For 250 mg dose pack: take 500 mg today (day 1), then 250 mg for 4 days (days 2-5) methylprednisolone [Medrol (Fernando)] 4 mg tablets,dose pack See Rx Instructions .ROUTE .COMPLEX Qty: 21 0RF Rx Instructions: orally per package directions albuterol sulfate 90 mcg/actuation HFA aerosol inhaler 2 inh inhalation QID PRN (Reason: shortness of breath or wheezing) Qty: 8.5 0RF Follow-up/Referrals: PHYSICIAN NOT ON STAFF,NONSTAFF [Primary Care Provider] - Time of Disposition: 08:57
--- OUTSIDE RECORDS SUMMARY | 2024-09-30 09:00 | XMS_ITS | Encounter Summary ---
Author Organization [facility] Address [address] [place] [address] Phone Care Team Providers Care Drilling Assistant Name Role Phone London Vega APRN, CNP Primary Care Pr ovider Reason for Visit * Reason Comments Medication Refill Encounter Details Date Type Department Care Team (Late st Contact Info) Description 09/09/2021 Refill [facility] - Family Medicine - [place] [address] [place] [phone] London Vega APRN, MASTER OF CEREMONIES [address] [address] Medication Refill Social History Tobacco Use Types Packs/Day Years Used Date Smoking Tobacco: Former Cigarettes 1.3 10 0 05/03/2002 - 01/10/2012 Smokeless Tobacco: Never Alcohol Use Standard Drinks/Week Comments No 0 (1 standard drink = 0.6 oz pur e alcohol) PHQ-2 Answer Date Recorded Total Score - Questions 1-9 0 04/20 Sex and Gender Information Value Date Recorded Sex Assigned at Not on file Legal Sex Male 8:50 PM CDT Gender Identity Not on file Sexual Orientation Not on file documented as of this encounter Miscellaneous Notes * Telephone Encounter - Zulemia Terry RN - 09/09/2021 9:13 AM CST Medication failed the protocol, provider to review and approve the medication order if appropriate. Requested Prescriptions Pending Prescriptions Disp Refills PARoxetine (PAXIL) 20 MG Tablet [Pharmacy Med Name: PAROXETINE HCL 20 MG TABLET] 30 Tablet 2 Sig: TAKE 1 TABLET BY MOUTH EVERY DAY SSRI (6 Month Refill Only) Protocol Failed - 09/09/2021 9:13 AM Failed - Patient has established therapy with SSRI for at least 6 months Passed - Visit with relevant provider in past 6 months or upcoming 90 days Recent Visits Date Type Provider Dept 06/09/21 Telemedicine London Vega APRN, CNP [facility] 05/30/21 Office Visit London [facility] APRN, [facility] 05/03/21 Office Visit London Pulido MD [facility] Showing recent visits within past 182 days and meeting all other requirements Future Appointments No visits were found meeting these conditions. Showing future appointments within next 90 days and meeting all other requirements Passed - Has an encounter in the past 6 months with a depression, anxiety, adjustment disorder, OCD, or PTSD visit diagnosis VERY REP documented in this encounter Plan of Treatment Not on file documented as of this encounter Visit Diagnoses Diagnosis PTSD (post-traumatic stress disorder) Posttraumatic stress disorder documented in this encounter Additional Health Concerns Assessment Noted Time PHQ-9 Depression Total Score: 0 05/03/20 11:00 AM CDT documented as of this encounter Care Teams Drilling Assistant Relationship Specialty Start Date End Date London Vega APRN, LAYA [address] [address] PCP - General Advanced Practice Nurse 05/30/21 documented as of this encounter
--- OUTSIDE RECORDS SUMMARY | 2024-09-30 09:00 | XMS_ITS | Clinical Summary ---
Author Organization [facility] Address [address] [place] [phone] Phone Care Team Providers Care Electrician Technician Name Role Phone Unavailable Primary Care Provider Unavailabl e Allergies No known active allergies Medications ciprofloxacin-d exAMETHasone (CIPRODEX) 0.3-0.1 % Drops, Suspension Administer 4 Drops in left ear 2 times daily. 7.5 mL Active Social History Tobacco Use Types Packs/Day Years Used Date Smoking Tobacco: Never Smokeless Tobacco: Never Tobacco Cessation:Counseling Given: Not Answered Alcohol Use Standard Drinks/Week Comments Not Currently 0 (1 standard drink = 0.6 oz pur e alcohol) Feeling Safe Answer Date Recorded Are you in a relationship wi th someone who hurts you emotionally and/or physically? No 07/19/2023 Sex and Gender Information Value Date Recorded Sex Assigned at Not on file Legal Sex Male 8:18 PM PROFESSOR COMPUTER SCIENCE Gender Identity Not on file Sexual Orientation Not on file Last Filed Vital Signs Vital Sign Reading Time Taken Comments Blood Pressure 114/75 07/20/2023 12:54 AM PROFESSOR COMPUTER SCIENCE Pulse 80 07/20/2023 12:54 AM PROFESSOR COMPUTER SCIENCE Temperature 37.2 C (99 F) 07/20/2023 12:54 AM PROFESSOR COMPUTER SCIENCE Respiratory Rate 16 07/20/2023 12:54 AM PROFESSOR COMPUTER SCIENCE Oxygen Saturation 93% 07/20/2023 12:54 AM PROFESSOR COMPUTER SCIENCE Inhaled Oxygen Concentration - - Weight 77.1 kg (170 lb) 07/19/2023 8:31 PM PROFESSOR COMPUTER SCIENCE Height 165.1 cm (5' 5 ) 07/19/2023 8:31 PM PROFESSOR COMPUTER SCIENCE Body Mass Index 28.29 07/19/2023 8:31 PM PROFESSOR COMPUTER SCIENCE Plan of Treatment Health Maintenance Due Date Last Done Comments INFLUENZA VACCINE (#1) 2024 COVID-19 Vaccine ( season) 2024 06/24/2021, 04/27/2021 DTAP/TDAP/TD VACCINES (8 - Td or Tdap) 07/26/2030 07/26/2020, 04/05/2007, 06/11/1996, Additional history exists HEPATITIS B VACCINES Completed 09/18/1995, 12/12/1994, 05/05/1994 HPV VACCINES Aged Out No longer eligi ble based on patient's age to complete this topic PNEUMOCOCCAL VACCINE 0-64 YEARS Aged Out No longer eligible based on patient's age to complete this topic Insurance [employer] MEDICAID
--- OUTSIDE RECORDS SUMMARY | 2024-09-30 09:00 | XMS_ITS | Encounter Summary ---
Author Organization [facility] Address [address] [place] [address] Phone Care Team Providers Care Leadership Coach Name Role Phone London Vega APRN, CNP Primary Care Pr ovider Reason for Visit * Reason Comments Medication Refill Encounter Details Date Type Department Care Team (Late st Contact Info) Description 11/02/2021 Refill [facility] - Family Medicine - [place] [address]2 [place] [phone] London Vega APRN, INDUSTRIAL ROOFER HELPER #[address] [address] Medication Refill Social History Tobacco Use Types [...] encounter Miscellaneous Notes * Telephone Encounter - Zuleima Terry RN - 11/02/2021 2:59 PM CDT PARoxetine (PAXIL) 20 MG Tablet 30 Tablet 2 09/09/2021 Sig: TAKE 1 TABLET BY MOUTH EVERY DAY Sent to pharmacy as: PARoxetine HCl 20 MG Oral Tablet (PAXIL) Class: E Prescribe E-Prescribing Status: Receipt confirmed by pharmacy (09/09/2021 ??9:37 AM DROP WIRER) Order Questions ?? PARoxetine (PAXIL) 20 MG Tablet [[id number]] 5 Status: Active Ordering user: London Vega APRN, CNP 09/09/21935 Authorized by: London Vega APRN, CNP Frequency: ??09/09/21 - Until Discontinued Released by: London Vega APRN, CNP 09/09/21935 Diagnoses PTSD (post-traumatic stress disorder) [F43.10] Associated Diagnoses PTSD (post-traumatic stress disorder) Pharmacy [id number] documented in this encounter Plan of Treatment Not on file documented as of this encounter Visit Diagnoses Diagnosis PTSD (post-traumatic stress disorder) Posttraumatic stress disorder documented in this encounter Additional Health Concerns Assessment Noted Time PHQ-9 Depression Total Score: 0 05/03/20 11:00 AM CDT documented as of this encounter Care Teams Leadership Coach Relationship Specialty Start Date End Date London Vega APRN, CNP [address] [address] PCP - General Advanced Practice Nurse 05/30/21 documented as of this encounter
--- OUTSIDE RECORDS SUMMARY | 2024-09-30 09:00 | XMS_ITS | Clinical Summary ---
Author Organization [facility] Address [address] [place] [address] Phone Care Team Providers Care Director Of Search Engine Marketing Name Role Phone London Vega APRN, WEIGHT LOSS PHYSICIAN Primary Care Pr ovider Allergies No known active allergies Medications No known medications Active Problems Problem Noted Date Diagnosed Date PTSD (post-traumatic stress disorder) 05/30/2021 Suicide attempt 05/30/2021 Immunizations Immunization Administration Dates Next Due Covid-19, Mrna, Lnp-s, Pf, 3 0 Mcg/0.3 Ml Dose (Heart Genetics) 06/24/2021,04/27/2021 DTP Vaccine 06/11/1996, 4,07/05/1993,10/15,1992 Hepatitis A, Pediatric, Unsp ecified Formulation 04/13/2009,04/05/2007 Hepatitis B Vaccine, Pediatric/adolescent 09/18/1995,12/12/1994,05/05/1994 Hib Vaccine,unspecified Formulation 12/18,07/05/1993,1992,04/16 MMR Vaccine 06/11/1996,07/05/1993 Meningococcal C Conjugate Vaccine 04/05/2007 OPV 06/11/1996, 3,1992,04/16 TD VACCINE 06/20/2004 TDAP Vaccine 07/26/2020,04/05/2007 Family History Medical History Relation Name Comments Heart Attack Father Asthma Mother Chronic Obstructive Pulmonary Disease Mother Relation Name Status Comments Father Mother Alive Social History Tobacco Use Types Packs/Day Years Used Date Smoking Tobacco: Former Cigarettes 1.3 10 0 05/03/2002 - 01/10/2012 Smokeless Tobacco: Never Tobacco Cessation:Counseling Given: No Alcohol Use Standard Drinks/Week Comments No 0 (1 standard drink = 0.6 oz pur e alcohol) PHQ-2 Answer Date Recorded Total Score - Questions 1-9 0 04/20 Education Answer Date Recorded What is the highest level of school you have completed or the highest degree you have received? 12th grade 11/13/2021 Sex and Gender Information Value Date Recorded Sex Assigned at Not on file Legal Sex Male 8:50 PM CDT Gender Identity Not on file Sexual Orientation Not on file Last Filed Vital Signs Vital Sign Reading Time Taken Comments Blood Pressure 134/82 03/12/2024 11:26 AM CDT Pulse 73 03/12/2024 11:26 AM CDT Temperature 36.7 C (98 F) 03/12/2024 11:26 AM CDT Respiratory Rate 16 03/12/2024 11:26 AM CDT Oxygen Saturation 96% 03/12/2024 11:26 AM CDT Inhaled Oxygen Concentration - - Weight 75.1 kg (165 lb 9.6 oz) 03/12/2024 11:26 AM CDT Height 165.1 cm (5' 5 ) 03/12/2024 11:26 AM CDT Body Mass Index 27.56 03/12/2024 11:26 AM CDT Plan of Treatment Health Maintenance Due Date Last Done Comments Hepatitis C Virus (HCV) Screening 1992 Influenza Immunization (#1) 2024 SARS-COV-2 Immunization ( season) 2024 06/24/2021, 04/27/2021 DTaP/Tdap/Td Immunization (8 - Td or Tdap) 07/26/2030 07/26/2020, 04/05/2007, 06/20/2004, Additional history exists Respiratory Syncytial Virus (RSV) Immunization (Adult) (1 - 1-dose 75+ series) 01/03/2067 Hepatitis B Immunization Completed 996, 12/12/1994, 05/05/1994 Meningococcal Immunization (ACWY) Aged Out No longer eligible based on patient's age to complete this topic Pneumococcal Immunization Combined Aged Out No longer eligible based on patient's age to complete this topic Rotavirus Immunization Aged Out No lo nger eligible based on patient's age to complete this topic Insurance MEDICAID [employer] Care Teams Director Of Search Engine Marketing Relationship Specialty Start Date End Date London Vega, SOURAV, WEIGHT LOSS PHYSICIAN [address] [place] [address] PCP - General Advanced Practice Nurse 05/30/21
[2024-09-30 09:01] LABS: EDCOVIDSCREEN Negative (Negative); EDINFLUASCREEN Negative (Negative); EDINFLUBSCREEN Negative (Negative)
== END 2024-09-30 09:02 | disposition home or self-care (01) ==
PROVIDERS: Emergency Provider Nurse Practitioner
DX: J06.9 Acute upper respiratory infection, unspecified (principal); Z20.822 Contact with and (suspected) exposure to COVID-19; F17.290 Nicotine dependence, other tobacco product, uncomplicated
CPT/HCPCS: 87426; 87804; 99213; G0463

== ENCOUNTER 2025-08-06 10:27 | Emergency (ER) | payer OTHER, SELFPAY ==
[2025-08-06 10:45] VITALS: BP 127/78; PULSE 74; RESP 18; TEMP 37.1; O2SAT 98
[2025-08-06 11:08] LABS: EDCOVIDSCREEN Negative (Negative); EDINFLUASCREEN Negative (Negative); EDINFLUBSCREEN Negative (Negative); EDSTREPNEGPOS1 Negative (Negative)
--- OUTSIDE RECORDS SUMMARY | 2025-08-06 11:16 | XMS_ITS | Clinical Summary ---
Author Organization [facility] Address [address] [place] [address] Phone Care Team Providers Care Blowing Weasand Name Role Phone Unavailable Primary Care Provider [...] on file Legal Sex Male 8:18 PM HOUSEMAID Gender Identity Not on file Sexual Orientation Not on file Last Filed Vital Signs Vital Sign Reading Time Taken Comments Blood Pressure 114/75 07/20/2023 12:54 AM HOUSEMAID Pulse 80 07/20/2023 12:54 AM HOUSEMAID Temperature 37.2 C (99 F) 07/20/2023 12:54 AM HOUSEMAID Respiratory Rate 16 07/20/2023 12:54 AM HOUSEMAID Oxygen Saturation 93% 07/20/2023 12:54 AM HOUSEMAID Inhaled Oxygen Concentration - - Weight 77.1 kg (170 lb) 07/19/2023 8:31 PM HOUSEMAID Height 165.1 cm (5' 5) 07/19/2023 8:31 PM HOUSEMAID Body Mass Index 28.29 07/19/2023 8:31 PM HOUSEMAID Plan of Treatment Health Maintenance Due Date Last Done Comments INFLUENZA VACCINE (#1) 2025 COVID-19 Vaccine (3 2024-2 6 season) 2025 06/24/2021, 04/27/2021 DTAP/TDAP/TD VACCINES (8 - T d or Tdap) 07/26/2030 07/26/2020, 04/05/2007, 06/11/1996, Additional history exists HEPATITIS B VACCINES Completed 09/18/1995, 12/12/1994, 05/05/1994 HPV VACCINES (No Doses Required) Completed Insurance [employer] MED[employer]
--- OUTSIDE RECORDS SUMMARY | 2025-08-06 11:16 | XMS_ITS | Encounter Summary ---
Author Organization [facility] Address [address] [place] [address] Phone Care Team Providers Care Fabricator Artificial Breast Name Role Phone London Vega APRN, CNP Primary Care Pr ovider Reason for Visit * Reason Comments Medication Refill Encounter Details Date Type Department Care Team (Late st Contact Info) Description 11/02/2021 Refill [facility] - Family Medicine - [place] [address] [place] [phone] London Vega APRN, LAYA [address] [address] Medication Refill Social History Tobacco Use Types [...] Receipt confirmed by pharmacy (09/09/2021 ??9:37 AM LOG YARD DERRICK OPERATOR) Order Questions ?? PARoxetine (PAXIL) 20 MG Tablet [[id number]] 5 Status: Active Ordering user: London Vega APRN, CNP 09/09/21935 Authorized by: London Vega APRN, CNP Frequency: ??09/09/21 - Until Discontinued Released by: London Vega APRN, CNP 09/09/21935 Diagnoses PTSD (post-traumatic stress disorder) [F43.10] Associated Diagnoses PTSD (post-traumatic stress disorder) Pharmacy [facility] #[id number] documented in this encounter Plan of Treatment Not on file documented as of this encounter Visit Diagnoses Diagnosis PTSD (post-traumatic stress disorder) Posttraumatic stress disorder documented in this encounter Additional Health Concerns Infection Onset Date Last Indicated Resolved Time Respiratory Rule-Out 06/18/2025 06/18/2025 025 1:05 PM CDT Assessment Noted Time PHQ-9 Depression Total Score: 0 05/03/20 11:00 AM CDT documented as of this encounter Care Teams Fabricator Artificial Breast Relationship Specialty Start Date End Date London Vega APRN, CNP [address] [address] PCP - General Advanced Practice Nurse 05/30/21 documented as of this encounter
--- OUTSIDE RECORDS SUMMARY | 2025-08-06 11:16 | XMS_ITS | Clinical Summary ---
Author Organization [facility] Address [address] [place] [address] Phone Care Team Providers Care Behavioral Assistant Name Role Phone London Vega APRN, LAYA Primary Care Pr ovider Allergies No known active allergies Medications hydrOXYzine (ATARAX) 25 MG TabletIndications: Anxiety,Fear of thunderstorms Take 1 Tablet by mouth every 6 hours as needed for Anxiety. 60 Tablet 5 Active PARoxetine (PAXIL) 40 MG TabletIndications: Anxiety,Fear of thunderstorms Take 1 Tablet by mouth daily. 30 Tablet 2 5 Active Active Problems Problem Noted Date Diagnosed Date PTSD (post-traumatic stress disorder) 05/30/2021 Suicide attempt 05/30/2021 Immunizations Immunization Administration Dates Next Due Covid-19, Mrna, Lnp-s, Pf, 3 0 Mcg/0.3 Ml Dose (treadalong) 06/24/2021,04/27/2021 DTP Vaccine 06/11/1996, 4,07/05/1993,10/15,1992 Hepatitis A, [...] Recorded Total Score - Questions 1-9 0 12/19 Education Answer Date Recorded What is the [...] Sign Reading Time Taken Comments Blood Pressure 100/70 01/13/2025 10:01 AM CDT Pulse 68 01/13/2025 10:01 AM CDT Temperature 36.4 C (97.5 F) 01/13/2025 10:01 AM CDT Respiratory Rate 16 01/13/2025 10:01 AM CDT Oxygen Saturation 97% 01/13/2025 10:01 AM CDT Inhaled Oxygen Concentration - - Weight 71.7 kg (158 lb) 01/13/2025 10:01 AM CDT Height 165.1 cm (5' 5) 01/13/2025 10:01 AM CDT Body Mass Index 26.29 01/13/2025 10:01 AM CDT Plan of Treatment Health Maintenance Due Date Last Done Comments Hepatitis C Virus (HCV) Screening 1992 Varicella Immunization (1 of 2 - 13+ 2-dose series) 01/03/2005 Influenza Immunization (#1) 2025 SARS-COV-2 Immunization (3 - 2024- season) 2025 06/24/2021, 04/27/2021 DTaP/Tdap/Td Immunization (8 - Td or Tdap) 07/26/2030 07/26/2020, 04/05/2007, 06/20/2004, Additional history exists Respiratory Syncytial Virus (RSV) Immunization (Adult) (1 - 1-dose 75+ series) 01/03/2067 Hepatitis B Immunization Completed 996, 12/12/1994, 05/05/1994 Human Papillomavirus (HPV) Immunization (No Doses Required) Completed Meningococcal Immunization (ACWY) Aged Out No longer eligible based on patient's age to complete this topic Pneumococcal Immunization Combined Aged Out No longer eligible based on patient's age to complete this topic Rotavirus Immunization Aged Out No lo nger eligible based on patient's age to complete this topic Procedures Procedure Name Priority Date/Time Associated Diagnosis Comments CULTURE - MISCELLANEOUS 06/18/20 12:00 AM CDT RESPIRATORY SYNCYTIAL VIRUS BY MOLECULAR 06/18/2025 12:00 AM CDT INFLUENZA TEST 06/18/2025 12:00 AM CDT SARS-COV-2 BY MOLECULAR 06/18/20 12:00 AM CDT from Last 3 Months Results * RESPIRATORY SYNCYTIAL VIRUS BY MOLECULAR (06/18/2025 12:00 AM CDT) 06/18/2025 us Provider Scan MICROBIOLOGY - GENERAL ORDERABLE S Final Result SCAN * INFLUENZA TEST (06/18/2025 12:00 AM CDT) 06/18/2025 us Provider Scan MICROBIOLOGY - GENERAL ORDERABLE S Final Result SCAN * CULTURE - MISCELLANEOUS (06/18/2025 12:00 AM CDT) 06/18/2025 us Provider Scan MICROBIOLOGY - GENERAL ORDERABLE S Final Result SCAN * SARS-COV-2 BY MOLECULAR (06/18/2025 12:00 AM CDT) 06/18/2025 us Provider Scan MICROBIOLOGY - GENERAL ORDERABLE S Final Result SCAN from Last 3 Months Insurance MEDICAID [employer] Care Teams Behavioral Assistant Relationship Specialty Start Date End Date London Vega, SOURAV, LAYA [address] [facility] [address] [place] [address] PCP - General Advanced Practice Nurse 05/30/21
--- OUTSIDE RECORDS SUMMARY | 2025-08-06 11:16 | XMS_ITS | Encounter Summary ---
Author Organization [facility] Address [address] [place] [address] Phone Care Team Providers Care Senior Loss Control Specialist Name Role Phone London Vega APRN, CNP Primary Care Pr ovider Reason for Visit * Reason Comments Medication Refill Encounter Details Date Type Department Care Team (Late st Contact Info) Description 09/09/2021 Refill [facility] - Family Medicine - [place] [address] [place] [phone] London Vega APRN, LAYA [address] [address] Medication Refill Social History Tobacco Use Types [...] Telephone Encounter - Zuleima Terry RN - 09/09/2021 9:13 AM CST [...] Provider Dept 06/09/21 Telemedicine London [facility] Office Visit London Pulido MD [facility] Showing recent visits within past 182 days and meeting all other requirements Future Appointments No visits were found meeting these conditions. Showing future appointments within next 90 days and meeting all other requirements Passed - Has an encounter in the past 6 months with a depression, anxiety, adjustment disorder, OCD, or PTSD visit diagnosis T REVIEWER documented in this encounter Plan of Treatment [...] documented as of this encounter Care Teams Senior Loss Control Specialist Relationship Specialty Start Date End Date London Vega APRN, DEGREE CLERK [address] [place] [address] PCP - General Advanced Practice Nurse 05/30/21 documented as of this encounter
[2025-08-06] MEDS: ONDANSETRON HCL ODT 4 MG TABLET SUBLINGUAL (11:24)
--- NOTE | 2025-08-06 11:37 | ED_ITS ---
HPI - URI/Sore Throat General Chief Complaint: Upper Respiratory Infection Stated Complaint: Sore throat, Vomiting, diarrhea Time Seen by Provider: 08/06/25 11:15 Source: patient and RN notes reviewed Mode of arrival: ambulatory Limitations: no limitations History of Present Illness HPI Narrative: 35-year-old male patient presents [facility] complaining of nausea vomiting, diarrhea, sore throat for 2 days. Patient denies any other symptoms. Patient has vomited this morning. Patient reports some epigastric pain. Patient has any fevers, body eczema chills. Patient reports brown watery diarrhea. Patient denies any black or tarry stools. Patient denies any significant past medical problems. Related Data Allergies Allergy/AdvReac Type Severity Reaction Status Date / Time No Known Allergies Allergy Verified 08/06/25 10:35 Review of Systems Review of Systems: CONSTITUTIONAL: Denies fever, chills, body aches, or sweats. EYES: Denies visual changes, redness, or discharge. ENT: Denies rhinorrhea, congestion, or otalgia. Positive for sore throat CARDIOVASCULAR: Denies chest pain, palpitations, or edema. RESPIRATORY: Denies cough or dyspnea. GASTROINTESTINAL: Denies abdominal pain, bloody stools, hematochezia. Positive for nausea, vomiting, or diarrhea. GENITOURINARY: Denies dysuria or hematuria. SKIN: Denies rash or itching. MUSCULOSKELETAL: Denies back pain, joint pain, or myalgia. NEUROLOGIC: Denies headache, numbness, or weakness. PSYCHIATRIC: Denies anxiety or depression. All other systems reviewed are negative, except as documented in HPI. PMFSH Past Medical History Medical History Strep throat Surgical History Surgical History History of placement of ear tubes as child Social History Social History Smoking status: Current every day smoker Tobacco type: e-cigarettes/vaping Gender identity (if verbalized by the patient): Male Exam Narrative: GENERAL: This is a well-nourished, well-developed adult, in no apparent distress. They are non ill-appearing, nontoxic appearing. HEAD: normocephalic, atraumatic. EYES: Sclera clear/white. Vision is grossly intact. EARS: External ears normal, auditory canals clear and without drainage, TMs without erythema or perforation. Hearing grossly intact. NOSE: External nose normal with no obvious nasal discharge, nasal turbinates without redness, no rhinorrhea. THROAT: Mucous membranes moist, posterior pharynx erythematous. Uvula is midline. NECK: Neck supple, non-tender without lymphadenopathy, masses or thyromegaly. CARDIOVASCULAR: Regular rate and rhythm without murmurs, gallops, or rubs. RESPIRATORY: Clear to auscultation. Breath sounds equal bilaterally. No wheezes, rales, or rhonchi. GASTROINTESTINAL: Abdomen soft, epigastric tenderness to palpation, nondistended. Bowel sounds are active. No hepato-splenomegaly, or palpable masses. No guarding or rigidity. No rebound tenderness. SKIN: warm, Dry, intact with no suspicious lesions or rash, good texture and turgor. NEURO: awake, alert, and oriented to person, place and time. There were no obvious focal neurologic abnormalities. EXTREMITIES: No joint tenderness, effusion, or edema noted. BACK: Nontender without deformity. No CVA tenderness. Course Course Level of Care: Express Care Visit Vital Signs Vital signs: Vital Signs Temperature 98.7 F 08/06/25 10:45 Pulse Rate 74 08/06/25 10:45 Respiratory Rate 18 08/06/25 10:45 Blood Pressure 127/78 08/06/25 10:45 Pulse Oximetry 98 08/06/25 10:45 Temperature 98.7 F 08/06/25 10:45 Pulse Rate 74 08/06/25 10:45 Respiratory Rate 18 08/06/25 10:45 Blood Pressure 127/78 08/06/25 10:45 Pulse Oximetry 98 08/06/25 10:45 [facility] MDM Narrative Medical decision making narrative: Rapid COVID, flu, strep were negative. A throat culture is pending. Patient's spouse has strep throat, clinical suspicion for strep pharyngitis, will go ahead and treat with amoxicillin. Patient may also have an underlying viral gastroenteritis. Given doses Zofran the [facility], reports feeling improvement of symptoms. Will send him home on Zofran. No peritoneal findings on exam. Moist mucous membranes, no tachycardia, patient does not clinically appear dehydrated. Patient says he has been able to keep fluids down in between vomiting. Discussed supportive care. Discussed physical exam findings. Advised supportive measures and signs/symptoms to go to the ER. Pt is appropriate for outpt treatment and f/u. Differential Diagnosis Differential Diagnosis: Differential diagnostic considerations for upper respiratory infection include upper respiratory infection, croup, otitis media, sinusitis, viral infection, bronchitis, influenza, pharyngitis, strep, uvulitis, gastritis, gastroenteritis, colitis. Lab Data MDM Lab Attestation statement: I personally reviewed the patient's lab results. Labs: Lab Results 08/06/25 Range/Units 10:43 POC Influenza A Ag Negative (Negative) POC Influenza B Ag Negative (Negative) POC SARS CoV-2 Ag Negative (Negative) POC Grp A Strep Screen Negative (Negative) Discharge Plan Discharge Clinical Impression: Gastroenteritis Pharyngitis Qualifiers: Pharyngitis/tonsillitis etiology: unspecified etiology Qualified Code(s): J02.9 - Acute pharyngitis, unspecified Patient Disposition: Home Condition: Stable Instructions: Antibiotic Form, Strep Throat (ED), Gastroenteritis (ED) Additional Instructions: ?Please take the amoxicillin as prescribed until gone. Take the amoxicillin with food it may cause GI upset. You will be contagious for 24 hours after starting the medication. ?After 24 hours on antibiotics throw tooth brush away and start using a new one. Wash your sheets and cup/water bottle that is used daily. Do not share drinks. Take Tylenol or Ibuprofen as needed for pain or fever, follow instructions on the bottle. Rest and stay hydrated. ? It is likely you also have a viral gastroenteritis. This is normally a self- limiting condition or resolve within 24-72 hours. However sometimes symptoms may linger on up to 7 days. It is recommended not to take anything for the diarrhea and allow the diarrhea to run its course. If the diarrhea persist and you feeling better, you may take Pepto-Bismol as needed to help control the diarrhea. Recommend hydration with plenty of fluids electrolyte supplementation such as Pedialyte. Follow-up PCP in 3-5 days. You may take Zofran as needed for nausea or vomiting. If Your unable to keep anything down, he developed abdominal pain, fevers, uncontrollable diarrhea, breathing problems, chest pains, concerns of dehydration, or any other concerns please go to the ER immediately. Patient Language: Chadian Prescriptions: New amoxicillin 500 mg tablet 500 mg PO Q12H Qty: 10 0RF ondansetron 4 mg tablet,disintegrating 4 mg PO Q8H PRN (Reason: nausea and vomiting) Qty: 12 0RF Follow-up/Referrals: UNKNOWN,DOCTOR [Primary Care Provider] Stand Alone Forms: Work/School Release IP Time of Disposition: 11:26
== END 2025-08-06 11:33 | disposition home or self-care (01) ==
DX: K52.9 Noninfective gastroenteritis and colitis, unspecified (principal); J02.9 Acute pharyngitis, unspecified; Z20.822 Contact with and (suspected) exposure to COVID-19; F17.290 Nicotine dependence, other tobacco product, uncomplicated
CPT/HCPCS: 87081; 87426; 87804; 87880; 99213; A9270; G0463